=== PATIENT | male | born 1965 | race American Indian/Alaskan Native ===

== ENCOUNTER 2021-01-28 16:54 | Emergency (ER) | payer BC ==
[2021-01-28] MEDS ORDERED: ASPIRIN 325 MG TAB PO ONE (19:46)
[2021-01-28] MEDS ORDERED: predniSONE 20 MG TAB PO ONE (19:46)
--- NOTE | 2021-01-28 20:25 | XRay Report ---
CHEST 2 VIEWS INDICATION / CLINICAL INFORMATION: chest pain. COMPARISON: None available. FINDINGS: SUPPORT DEVICES: None. HEART / MEDIASTINUM: No significant abnormality. LUNGS / PLEURA: The lungs are mildly hyperinflated but otherwise clear. No acute pulmonary or pleural disease noted. No pneumothorax. ADDITIONAL FINDINGS: No significant additional findings. IMPRESSION: 1. Mild hyperinflation of the lungs. No other significant finding. Signer Name: Tarah Luna MD Signed: 01/28/2021 8:20 PM Workstation Name: [id number]
[2021-01-28 21:37] LABS: Basophils % (Auto) 0.1 % (0.0-1.8); Eosinophils # (Auto) 0.1 K/mm3 (0.0-0.4); Eosinophils % (Auto) 0.9 % (0.0-4.3); Hematocrit 45.8 % (35.5-45.6); Hemoglobin 15.1 gm/dl (11.8-15.2); Lymphocytes # (Auto) 3.1 K/mm3 (1.2-5.4); Lymphocytes % (Auto) 26.4 % (13.4-35.0); Mean Corpuscular HGB Conc 33 % (32-34); Mean Corpuscular Volume 82 fl (84-94); Monocytes # (Auto) 0.4 K/mm3 (0.0-0.8); Monocytes % (Auto) 3.5 % (0.0-7.3); Platelet Count 287 K/mm3 (140-440); Red Blood Count 5.61 M/mm3 (3.65-5.03); Red Cell Distribution Width 14.5 % (13.2-15.2)
[2021-01-28 21:51] LABS: Alanine Aminotransferase 37 units/L (7-56); Albumin 4.4 g/dL (3.9-5); BUN/Creatinine Ratio 14; Blood Urea Nitrogen 14 mg/dL (9-20); Calcium 9.3 mg/dL (8.4-10.2); Hemolysis Index 9
--- NOTE | 2021-01-28 22:21 | Emergency Department Report ---
ED General Adult HPI - General Chief complaint: Shoulder Injury Stated complaint: LEFT SHOULDER PAIN Source: patient Mode of arrival: Ambulatory Limitations: No Limitations - History of Present Illness Initial comments: Patient is a 55-year-old -[place] male with history of hypertension who presents to the ED with complaint of acute onset persistent constant posterior l eft shoulder pain that radiates to the left upper posterior thoracic area, and proximally to the posterior cervical area and left shoulder and left arm for the last 5 days. Patient states that the pain is worse with any active range of motion of his left shoulder, and that he has not been able to sleep because of persistent pain. Patient described pain as sharp, stabbing resulting in left arm tingling and numbness. Patient states that he has been taking [id number]-[id number] medications with no relief. Patient denies fall, traumatic injury, heavy lifting, nausea and vomiting, chest pain, shortness of breath, headache, dizziness, syncope, diaphoresis, abdominal pain or change in vision. MD Complaint: Posterior left shoulder and arm pain -: Sudden, days(s) (5) Location: neck (Posterior neck pain), back (Upper left-sided posterior thoracic pain), upper extremity (Posterior left shoulder and left arm pain) Radiation: back (Upper left-sided thoracic area), neck (Posterior neck), extremity (Left shoulder, left arm) Severity scale (0 -10): 7 Quality: aching, sharp Consistency: constant Improves with: none Worsens with: movement Associated Symptoms: denies other symptoms. denies: confusion, chest pain, cough, diaphoresis, fever/chills, headaches, loss of appetite, malaise, nausea/vomiting, rash, seizure, shortness of breath, syncope, weakness Treatments Prior to Arrival: none - Related Data Previous Rx's Medication Instructions Recorded Last Taken Type cephALEXin [Keflex] 500 mg PO Q12HR 7 Days #14 cap 12/04/19 Unknown Rx Baclofen 20 mg PO Q12H PRN #24 tablet 01/28/21 Unknown Rx Naproxen [Naprosyn] 500 mg PO Q12H PRN #30 tablet 01/28/21 Unknown Rx predniSONE [Deltasone] 40 mg PO QDAY #10 tab 01/28/21 Unknown Rx Allergies Allergy/AdvReac Type Severity Reaction Status Date / Time No Known Allergies Allergy Unverified 12/04/19 12:14 ED Review of Systems ROS: Stated complaint: LEFT SHOULDER PAIN Other details as noted in HPI Constitutional: denies: chills, fever Eyes: denies: eye pain, eye discharge, vision change ENT: denies: ear pain, throat pain Respiratory: denies: cough, shortness of breath, wheezing Cardiovascular: denies: chest pain, palpitations Endocrine: no symptoms reported Gastrointestinal: denies: abdominal pain, nausea, diarrhea Genitourinary: denies: urgency, dysuria Musculoskeletal: back pain (Posterior upper left thoracic pain), arthralgia (Posterior neck and left shoulder pain). denies: joint swelling Skin: denies: rash, lesions Neurological: denies: headache, weakness, paresthesias Psychiatric: denies: anxiety, depression Hematological/Lymphatic: denies: easy bleeding, easy bruising ED Past Medical Hx - Past Medical History Previous Medical History?: Yes Hx Hypertension: Yes - Surgical History Past Surgical History?: No - Social History Smoking Status: Never Smoker Substance Use Type: None - Medications Home Medications: Home Medications Medication Instructions Recorded Confirmed Last Taken Type cephALEXin [Keflex] 500 mg PO Q12HR 7 Days #14 cap 12/04/19 Unknown Rx Baclofen 20 mg PO Q12H PRN #24 tablet 01/28/21 Unknown Rx Naproxen [Naprosyn] 500 mg PO Q12H PRN #30 tablet 01/28/21 Unknown Rx predniSONE [Deltasone] 40 mg PO QDAY #10 tab 01/28/21 Unknown Rx ED Physical Exam - General Limitations: No Limitations General appearance: alert, in no apparent distress - Head Head exam: Present: atraumatic, normocephalic, normal inspection - Eye Eye exam: Present: normal appearance, PERRL, EOMI Pupils: Present: normal accommodation - ENT ENT exam: Present: normal exam, normal orophraynx, mucous membranes moist, TM's normal bilaterally, normal external ear exam - Neck Neck exam: Present: normal inspection, tenderness (Palpable left lateral cervical paraspinal musculoskeletal tenderness), full ROM - Respiratory Respiratory exam: Present: normal lung sounds bilaterally. Absent: respiratory distress, wheezes, rales, stridor, chest wall tenderness, accessory muscle use, decreased breath sounds, prolonged expiratory - Cardiovascular Cardiovascular Exam: Present: regular rate, normal rhythm, normal heart sounds. Absent: systolic murmur, diastolic murmur, rubs, gallop - GI/Abdominal GI/Abdominal exam: Present: soft, normal bowel sounds. Absent: tenderness, guarding, rebound, hyperactive bowel sounds, hypoactive bowel sounds, organomegaly - Extremities Exam Extremities exam: Present: normal inspection, full ROM, tenderness (Palpable left shoulder joint tenderness), normal capillary refill - Back Exam Back exam: Present: normal inspection, full ROM, tenderness (Palpable left lateral upper posterior thoracic paraspinal musculoskeletal tenderness), muscle spasm, paraspinal tenderness. Absent: CVA tenderness (R), CVA tenderness (L), vertebral tenderness - Neurological Exam Neurological exam: Present: alert, oriented X3, CN II-XII intact, normal gait, reflexes normal - Psychiatric Psychiatric exam: Present: normal affect, normal mood - Skin Skin exam: Present: warm, dry, intact, normal color. Absent: rash ED Course Vital Signs 01/28/21 01/28/21 17:49 22:50 Temperature 98.5 F 98.5 F Pulse Rate 87 75 Respiratory 18 18 Rate Blood Pressure 193/115 185/112 O2 Sat by Pulse 98 97 Oximetry ED Medical Decision Making - Lab Data Result diagrams: 01/28/21 20:10 01/28/21 20:10 - Radiology Data Radiology results: report reviewed, [place] [address] XRay Report Signed Patient: MERLY ROMAN MR#: [id number] : 1965 Acct:[id number] Age/Sex: 55 / M ADM Date: 01/28/21 Loc: ED Attending Dr: Ordering Physician: ZULY DE LA CRUZ Date of Service: 01/28/21 Procedure(s): XR chest routine 2V Accession Number(s): [id number] cc: ZULY DE LA CRUZ Fluoro Time In Minutes: CHEST 2 VIEWS INDICATION / CLINICAL INFORMATION: chest pain. COMPARISON: None available. FINDINGS: SUPPORT DEVICES: None. HEART / MEDIASTINUM: No significant abnormality. LUNGS / PLEURA: The lungs are mildly hyperinflated but otherwise clear. No acute pulmonary or pleural disease noted. No pneumothorax. ADDITIONAL FINDINGS: No significant additional findings. IMPRESSION: 1. Mild hyperinflation of the lungs. No other significant finding. Signer Name: Tarah Luna MD Signed: 01/28/2021 8:20 PM Workstation Name: [id number] Transcribed By: JR Dictated By: Tarah Luna MD Electronically Authenticated By: Tarah Luna MD Signed Date/Time: 01/28/212019 DD/ 19 TD/TT: Print - Medical Decision Making This is a 55-year-old -Hung[place] male with history of hypertension who presents to the ED with complaint of acute onset persistent constant posterior left shoulder pain that radiates to the left upper posterior thoracic area, and proximally to the posterior cervical area and left shoulder and left arm for the last 5 days. Patient states that the pain is worse with any active range of motion of his left shoulder, and that he has not been able to sleep because of persistent pain. Patient described pain as sharp, stabbing resulting in left arm tingling and numbness. Patient states that he has been taking [id number]-wlm-[id number] medications with no relief. In the ED, patient is alert and oriented x3 and is not in any distress with normal vital signs. Chest x-ray shows no acute cardiopulmonary abnormalities or pneumonitis. All lab test results were reviewed and are all nonactionable including troponin levels. EKG shows normal sinus rhythm with no ST or T wave abnormalities. Patient the history and physical exam findings, the patient symptoms are likely due to musculoskeletal inflammation versus left shoulder bursitis versus left cervical radiculopathy. Patient was treated for pain in the ED and on reevaluation, pat basim's pain is well controlled medications. Patient will discharge home on pain medications and advised to follow-up with his primary care physician in 5 to 7 days for reevaluation. Patient is advised return to the ED immediately if symptoms get worse. - Differential Diagnosis shoulder bursitis/tendinitis; cervical radiculopathy; muscle spasm Critical care attestation.: If time is entered above; I have spent that time in minutes in the direct care of this critically ill patient, excluding procedure time. ED Disposition Clinical Impression: Bursitis of left shoulder, Spasm of thoracic back muscle, Cervical radiculopathy Disposition: TO HOME OR SELFCARE Is pt being admited?: No Does the pt Need Aspirin: No Condition: Stable Instructions: Muscle Cramps and Spasms, [id number], Bursitis, [id number], Shoulder Impingement Syndrome, Cervical Radiculopathy, [id number] Additional Instructions: Chest x-ray shows no acute cardiopulmonary abnormalities or pneumonitis. All lab test results were reviewed and are all nonactionable. Your symptoms are likely due to muscle strain versus left shoulder bursitis or tendinitis or muscle spasm of your back. This also likely due to cervical radiculopathy which is an impingement of nerve from your neck that innervates your upper back, left arm and shoulder and neck. Therefore take medications with food, drink plenty of fluids and follow-up with your primary care physician in 5 to 7 days for reevaluation. Return to the ED immediately if symptoms get worse. Prescriptions: Baclofen 20 mg PO Q12H PRN #24 tablet PRN Reason: Muscle Spasm predniSONE [Deltasone] 40 mg PO QDAY #10 tab Naproxen [Naprosyn] 500 mg PO Q12H PRN #30 tablet PRN Reason: Pain , Severe (7-10) Referrals: [facility] [Provider Group] - 3-5 Days Time of Disposition: 22:26 Print Language: YI
[2021-01-29 01:58] VITALS: BP 188/95
--- NOTE | 2021-01-30 10:38 | Electrocardiograph Report ---
[facility] Test Date: 2021-01-28 Test Time: 19:49:45 Pat Name: MERLY ROMAN Department: Room: Gender: M Greeter: raúl : 1965 Requested By: AARON BAUM Order Number: [id number] Reading MD: Pablito Vieyra Measurements Intervals [place] Rate: 78 P: 60 UT: 159 QRS: -33 QRSD: 99 T: 65 QT: 397 QTc: 453 Interpretive Statements Sinus rhythm Ventricular premature complex Probable left atrial enlargement Left axis deviation No previous ECG available for comparison Electronically Signed On 01-30-2021 10:38:18 EDT by Pablito Vieyra
== END 2021-01-28 23:25 | disposition home or self-care (01) ==
LOC: ED 16:54
DX: M75.52 Bursitis of left shoulder (principal); M62.830 Muscle spasm of back; M54.10 Radiculopathy, site unspecified; I10 Essential (primary) hypertension
CPT/HCPCS: 36415; 71046; 80053; 84484; 85025; 93005; 99284; J7512